=== PATIENT | female | born 1980 | race Caucasian/White ===

== ENCOUNTER 2018-07-26 22:01 | Emergency (ER) | payer OTHER ==
[~2018-07-26 22:01] MED LIST: AMBIEN 10MG10 MG PO; AMOXIL500 MG PO; BACTRIM DS 8001 TAB PO; DILAUDID2 MG PO; MEDROL4 MG PO; MOTRIN600 MG PO; PERCOCET 325 MG1 TA2 PO; VALIUM5 M1 PO
[2018-07-26 22:06] VITALS: BP 129/76
== END 2018-07-27 01:58 | disposition admitted as inpatient to this hospital (09) ==
LOC: ERH 22:01
DX: G43.909 Migraine, unspecified, not intractable, without status migrainosus (principal)